=== PATIENT | female | born 1960 | race Two or more races ===

== ENCOUNTER → 2016-05-17 | Outpatient (CLI) | payer BC ==
[~2016-05-17] MED LIST: None per pt
== END | disposition home or self-care (01) ==
LOC: STAR 15:35
PROVIDERS: ATTEND Obstetrics & Gynecology Female Pelvic Medicine and Reconstructive Surgery
DX: Z02.9 Encounter for administrative examinations, unspecified (principal)

== ENCOUNTER 2016-05-21 05:20 | Day surgery (SDC) | payer BC ==
[2016-05-17 15:44] VITALS: BP 115/61
[~2016-05-21] VITALS: Ht 165.1 cm; Wt 69.0 kg
[2016-05-21] MEDS ORDERED: LIDOCAINE 1%, 2ML ONE (05:55)
[2016-05-21] MEDS ORDERED: LACTATED RINGERS 1,000 ML IV SCH (06:10)
[2016-05-21] MEDS ORDERED: LIDOCAINE 1%, 2ML SQ PRN (06:30)
[2016-05-21] MEDS ORDERED: MIDAZOLAM 1 MG/ML, 2ML ONE (07:04)
[2016-05-21] MEDS ORDERED: FENTANYL PF 250 MCG/5ML ONE (07:04)
[2016-05-21 07:15] LABS: HCG UR OBC PASS
[2016-05-21] MEDS ORDERED: NEOMY/POLYMYXIN B GU IRR. 1 ML IRRIG ONE ×2 (07:17→07:30)
[2016-05-21] MEDS ORDERED: BUPIVACAINE/PF-EPI 0.25% 1:200K ONE (07:17)
[2016-05-21] MEDS ORDERED: NEOSTIGMINE 1 MG/ML, 10ML ONE (07:33)
[2016-05-21] MEDS ORDERED: DEXAMETHASONE 4 MG/ML, 1ML ONE (07:33)
[2016-05-21] MEDS ORDERED: ROCURONIUM 10 MG/ML ONE (07:33)
[2016-05-21] MEDS ORDERED: CEFAZOLIN 1,000 MG ONE (07:33)
[2016-05-21] MEDS ORDERED: PROPOFOL 10 MG/ML, 20ML ONE (07:33)
[2016-05-21] MEDS ORDERED: ONDANSETRON 2MG/ML, 2ML ONE (07:33)
[2016-05-21] MEDS ORDERED: KETOROLAC 30 MG/1 ML ONE (07:33)
[2016-05-21] MEDS ORDERED: GLYCOPYRROLATE 0.2MG/1ML ONE (07:33)
[2016-05-21] MEDS ORDERED: SUCCINYLCHOLINE 20 MG/ML, 10ML ONE (07:33)
[2016-05-21] MEDS ORDERED: BUPIVACAINE/PF-EPI 0.25% 1:200K INFIL ONE (07:55)
[2016-05-21] MEDS ORDERED: MEPERIDINE/PF 25MG/0.5ML IVPush PRN (08:00)
[2016-05-21] MEDS ORDERED: LABETALOL 5MG/ML, 20ML IV PRN (08:00)
[2016-05-21] MEDS ORDERED: hydrALAzine 20 MG/ML, 1ML IV PRN (08:00)
[2016-05-21] MEDS ORDERED: ONDANSETRON 2MG/ML, 2ML IVPush PRN ×2 (08:00→13:30)
[2016-05-21] MEDS ORDERED: MIDAZOLAM 1 MG/ML, 2ML IV PRN (08:00)
[2016-05-21] MEDS ORDERED: PROMETHAZINE 25 MG/ML, 1ML IV PRN (08:00)
[2016-05-21] MEDS ORDERED: HYDROmorphone 1 MG/ML, 1ML IV PRN (08:00)
[2016-05-21] MEDS ORDERED: ACETAMINOPHEN 325 MG TABLET PO PRN (08:00)
[2016-05-21] MEDS ORDERED: METOPROLOL 1 MG/ML, 5ML IV PRN (08:00)
[2016-05-21] MEDS ORDERED: EPHEDRINE 50 MG/ML, 1ML IVPush PRN (08:00)
[2016-05-21] MEDS ORDERED: ALBUTEROL SULFATE 2.5 MG/3 ML NPPB PRN (08:00)
[2016-05-21] MEDS ORDERED: OXYcodone 5 MG/5 ML ORAL.SOL UDC PO PRN (08:00)
[2016-05-21] MEDS ORDERED: FENTANYL PF 100 MCG/2ML ONE (09:24)
[2016-05-21] MEDS ORDERED: OXYcodone 5 MG/5 ML ORAL.SOL UDC ONE (09:25)
[2016-05-21] MEDS ORDERED: ACETAMINOPHEN 325 MG TABLET ONE (09:25)
[2016-05-21] MEDS: FENTANYL PF 100 MCG/2ML IV PRN ×2 (09:30→09:40)
[2016-05-21] MEDS ORDERED: PROMETHAZINE 25 MG/ML, 1ML ONE (09:43)
[2016-05-21] MEDS ORDERED: HYDROmorphone 2 MG/ML, 1ML ONE (09:43)
[2016-05-21] MEDS ORDERED: OXYcodone/APAP 5/325MG TABLET ONE (13:19)
[2016-05-21] MEDS ORDERED: HYDROmorphone 2 MG/ML, 1ML IVPush PRN (13:30)
[2016-05-21] MEDS ORDERED: OXYcodone/APAP 5/325MG TABLET PO PRN (13:30)
[2016-05-21] MEDS ORDERED: ZOLPIDEM 5MG TABLET PO PRN (13:30)
[2016-05-21] MEDS ORDERED: HYDROcodone/APAP 5/325 TABLET PO PRN (13:30)
[2016-05-21] MEDS ORDERED: SIMETHICONE 80 MG CHEW TAB PO SCH (16:00)
[2016-05-21] MEDS ORDERED: IBUPROFEN 600 MG TABLET PO SCH (16:00)
[2016-05-21] MEDS ORDERED: DOCUSATE 100 MG CAPSULE PO SCH (21:00)
== END 2016-05-21 17:15 | disposition home or self-care (01) ==
LOC: OUT 05:20
PROVIDERS: ATTEND Obstetrics & Gynecology Female Pelvic Medicine and Reconstructive Surgery
DX: N80.0 Endometriosis of uterus (principal); N39.3 Stress incontinence (female) (male); N81.11 Cystocele, midline; N81.5 Vaginal enterocele; N81.6 Rectocele; Z87.410 Personal history of cervical dysplasia
CPT/HCPCS: 57265; 57282; 57288; 58552; 81025; 88307; C1771; J0330; J0690; J1100; J1170; J1885; J2250; J2405; J2550; J2704; J2710; J3010; J7120; J3490